=== PATIENT | female | born 1960 | race Caucasian/White ===

== ENCOUNTER 2025-06-03 15:05 | Emergency (ER) | payer MEDICARE, BC, SELFPAY ==
[2025-06-03 15:09] VITALS: BP 174/117
[2025-06-03 15:31] LABS: Hematocrit 40.2 % (37.0-47.0); Hemoglobin 13.1 g/dL (12.0-16.0); Mean Corp Hgb Conc. 32.6 g/dL (33.0-37.0); Mean Corpuscular Volume 93.3 fL (81.0-99.0); Nucleated Red Blood Cells % 0 %; Platelet Count 233 10^3/uL (130-400); Red Cell Dist. Width 12.5 % (11.5-14.5)
[2025-06-03 15:41] LABS: INR 0.95; PT 13.0 Sec (11.4-14.6)
[2025-06-03 15:42] LABS: APTT 27.4 Sec (23.4-35.0)
[2025-06-03 15:47] LABS: ALT (SGPT) 18 U/L (0-35); AST (SGOT) 23 U/L (14-36); Albumin 4.8 g/dl (3.5-5.0); Alkaline Phosphatase 101 U/L (38-126); Blood Urea Nitrogen 19 mg/dl (7-17); Calcium 9.5 mg/dl (8.4-10.2); Carbon Dioxide 27 mmol/L (22-30); Chloride 109 mmol/L (98-107); Glucose 102 mg/dl (70-99); Potassium 3.9 mmol/L (3.5-5.1); Sodium 142 mmol/L (135-145); Total Protein 7.3 g/dl (6.3-8.2); eGFR > 60.00
--- NOTE | 2025-06-03 20:30 | ED.CVA ---
History of Present Illness
General
Chief Complaint: CVA/TIA Symptoms
Source: patient and family
Exam Limitations: none
Time Seen by Provider: 06/03/25 20:09
Onset of Stroke Symptoms
Onset of symptoms known: Yes
Date of onset of symptoms: 06/03/25
History of Present Illness
History of Present Illness:
A 64-year-old female started yesterday with pain above her left eye more the left frontal area extending slightly to the left lateral pentecostalism. No vomiting. Slight nausea at times. No other neurologic symptoms describing numbness tingling weakness
speech issues gait issues etc. No seizure issues. Has had occasional headaches in the past.
Past History
Past History
ED Past Medical History: HTN, Hypercholesterolemia, Seizures and Other (anemia)
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
Social History
Tobacco: Former smoker
Alcohol: Occasional
Drug: None
Personal: Other ()
Living: alone
Family History
Family History: Unable to obtain
Review of Systems
Review of Systems
Constitutional: Denies fever
Neurological: Denies dizzy, weakness or numbness
Phy Exam
Physical Exam
Physical Exam:
GENERAL: Alert and oriented in no apparent distress
EYE: Orbits normal.
NECK: Supple, no carotid bruit. No temporal tenderness
CARDIAC: Regular rate and rhythm without any obvious murmurs.
LUNGS: Clear breath sounds,normal
ABDOMEN: Soft, without focal tenderness or distention
NEUROLOGICAL: Alert and oriented , cranial nerves II through XII intact. Speech normal. Umicuh-eu-lcia normal. No drift. Gait normal. Negative Romberg. Eye confrontation normal.
SKIN: Warm and dry, no rash or lesion, no discoloration, skin intact.
MUSCULOSKELETAL: No edema,no deformity.Good color
PSYCH: Normal and appropriate interaction.
Course
Orders/Labs/Results
Orders:
Orders
06/03/25 15:14
CT Head W/o Iv Contrast Urgent
Comment:
Reason For Exam: left eye blurry, headache
06/03/25 15:21
Complete Blood Count/With Diff Urgent
Comprehensive Metabolic Panel Urgent
Erythrocyte Sed Rate Urgent
Comment: ADD ON
PTT Urgent
Prothrombin Time Urgent
06/03/25 20:30
Add On- LAB Urgent
Tests Added?: esr
Abnormal Lab Results
06/03/25
15:21
MCHC 32.6 L g/dL
(33.0-37.0)
Chloride 109 H mmol/L
(98-107)
BUN 19 H mg/dl
(7-17)
Glucose 102 H mg/dl
(70-99)
06/03/25 15:21
06/03/25 15:21
Vital Signs
Initial and Last Documented VS:
Initial Vital Signs
Temp Pulse Resp BP Pulse Ox
98.1 F 106 20 174/117 98
06/03/25 15:09 06/03/25 15:09 06/03/25 15:09 06/03/25 15:09 06/03/25 15:09
Last Documented Vital Signs
Temp Pulse Resp BP Pulse Ox
98.1 F 85 20 193/101 98
06/03/25 15:09 06/03/25 20:33 06/03/25 15:09 06/03/25 21:11 06/03/25 20:34
MDM/Problems Addressed
Differential Diagnosis Includes:
Patient very nontoxic in no distress. Not describing seizure issue. Has no acute neurologic symptoms. Appears very nontoxic. Left frontal headache with left temporal symptoms. Will check ESR. Very low suspicion for CVA. Very low suspicion for
bleed. Stable head CT. Discussed with patient's daughters. They were on the phone during examination.
*Radiology
Radiology exam reviewed: radiology read reviewed (No acute findings on CT)
*Pulse Oximetry
SaO2: 98
Oxygen Mode of Delivery: Room air
Patient hypoxic: no
*Critical Care Note
Total Time (30-74mins, 75-104mins- exclusive of procedures): Not Applicable
Data Reviewed
Review of Other/Old Records Reveals: Labs, Records, Radiology Studies and Testing
Update Note
Update Note:
Patient is remained stable and nontoxic. Sed rate within normal limits. Blood pressure elevated but patient admitted to being very nervous. It has been running normal at home. She will watch this closely at home. Stable for discharge to
follow-up
ED Attending Note
-
Portions of this chart may have been created with voice recognition software.� Occasional wrong word or��sound alike� substitutions may have occurred due to the inherent limitations of voice recognition software.
Discharge Plan
Departure
Patient Disposition: Home (Routine Discharge)
Date of Disposition: 06/03/25
Time of Disposition: 21:41
Patient with high blood pressure during this ER visit?: Yes
Discharge Problem:
Left frontal headache
Instructions: Headaches in adults, BLOOD PRESSURE
Prescriptions:
No Action
pantoprazole 40 MG tablet,delayed release (DR/EC)
40 mg PO DAILY
lamotrigine 100 MG tablet
300 mg PO BID
diazepam 5 MG tablet
5 mg PO DAILY PRN (Reason: seizure)
Patient Comments:
MAY REPEAT Q 4 HOUR
zonisamide 100 MG capsule
400 mg PO DAILY
Patient Comments:
total 500mg daily
duloxetine [Cymbalta] 60 mg Capsule,Delayed Release(Dr/Ec)
60 mg PO HS
Referrals:
Quinton Gardiner MD [Family Provider, Internal Medicine] - Tomorrow
Activity Restrictions/Additional Instructions:
Follow-up close with your primary doctors and follow your blood pressures.
Please return immediately with worsening headache, or any neurologic symptoms
Interventions
Interventions:
*Risk Screen - Suicide Last Done: 06/03/25 15:09
*General Assessment Last Done: 06/03/25 20:20
*Neglect/Abuse Screening Last Done: 06/03/25 20:20
*ED- Fall Risk Assessment Last Done: 06/03/25 20:20
*ED COVID-19 Vaccine History Last Done: 06/03/25 20:20
*Nursing Disposition Last Done: 06/03/25 21:47
ED- Pulmonary Assessment Last Done: 06/03/25 20:20
ED- Neurological Assessment Last Done: 06/03/25 20:20
ED- Cardiac Assessment Last Done: 06/03/25 20:20
ED Swallowing Screen Last Done: 06/03/25 21:14
Discharge Date and Time
Discharge Date/Time: 06/03/25 21:47
Print Language: GUYANESE
[2025-06-03 20:33] VITALS: BP 197/107
[2025-06-03 21:11] VITALS: BP 193/101
== END 2025-06-03 21:47 | disposition home or self-care (01) ==
LOC: EMR 15:05
PROVIDERS: Emergency Medicine; EMERGENCY PHYSICIAN Emergency Medicine; FAMILY PHYSICIAN Family Medicine
DX: R51.9 Headache, unspecified (principal); E78.00 Pure hypercholesterolemia, unspecified; I10 Essential (primary) hypertension; Z87.891 Personal history of nicotine dependence
CPT/HCPCS: 99284; 70450; 80053; 85025; 85610; 85652; 85730